=== PATIENT | female | born 1970 | race Caucasian/White ===

== ENCOUNTER 2017-06-15 21:32 | Emergency (ER) | payer BC ==
[2017-06-15 21:41] VITALS: BP 148/98
[2017-06-15] MEDS ORDERED: Albuterol 2.5 MG/3 ML NEB.SOL* (0.083%) INH ONE (21:55)
[2017-06-15] MEDS ORDERED: predniSONE TAB* 20 MG PO ONE (21:57)
--- NOTE | 2017-06-15 22:06 | UC ---
Respiratory Complaint HPI - HPI Summary HPI Summary: This is a 47 yo female with asthma who presents with c/o cough and SOB that started this am. Cough is dry. She has used her albuterol neb and inhaler at home earlier today with some positive effect. No fever, abd pain, n/v/d. No rash. She generally has an asthma exacerbation ~once yearly. - History of Current Complaint Chief Complaint: UCRespiratory Stated Complaint: COUGH Hx Last Menstrual Period: 06/02/17 - Allergies/Home Medications Allergies/Adverse Reactions: Allergies Allergy/AdvReac Type Severity Reaction Status Date / Time No Known Allergies Allergy Verified 06/15/17 21:35 PMH/Surg Hx/FS Hx/Imm Hx Previously Healthy: No - asthma - Surgical History Surgical History: Yes Surgery Procedure, Year, and Place: [place], [place] [facility] - Family History Known Family History: Positive: Hypertension - mother, Diabetes - mother - Social History Alcohol Use: Occasionally Substance Use Type: None Smoking Status (MU): Never Smoked Tobacco - Immunization History Most Recent Tetanus Shot: "I have no idea." Review of Systems Constitutional: Negative Skin: Negative Eyes: Negative ENT: Negative Respiratory: Shortness Of Breath, Cough Cardiovascular: Negative Gastrointestinal: Negative Genitourinary: Negative Motor: Negative Neurovascular: Negative Musculoskeletal: Negative Neurological: Negative Psychological: Negative All Other Systems Reviewed And Are Negative: Yes Physical Exam Triage Information Reviewed: Yes Appearance: Well-Appearing Vital Signs: Initial Vital Signs Temp 99.4 F 06/15/17 21:36 Pulse 83 06/15/17 21:36 Resp 20 06/15/17 21:36 BP 148/98 06/15/17 21:36 Pulse Ox 99 06/15/17 21:36 Vital Signs Reviewed: Yes ENT Exam: Normal ENT: Positive: Hearing grossly normal Neck: Positive: Supple, Nontender Respiratory: Positive: Lungs clear, Other: - freq dry cough. Negative: Crackles , Stridor, Wheezing Cardiovascular: Positive: RRR, No Murmur Abdomen Description: Positive: Nontender, Soft Musculoskeletal Exam: Normal Musculoskeletal: Positive: Strength Intact Neurological Exam: Normal Neurological: Positive: Alert Psychological Exam: Normal Skin Exam: Normal Skin: Negative: rashes UC Diagnostic Evaluation - Laboratory O2 Sat by Pulse Oximetry: 99 Re-Evaluation - Re-Evaluation First Eval Re-Evaluation Time: 22:15 Change: Improved Comment: Cough improved, good air exchange Respiratory Course/Dx - Course Course Of Treatment: This is a 47 yo female with asthma who presents with c/o cough and SOB x 1 d. Exam is mostly benign but she has a freq dry cough. Will treat for asthma exacerbation/acute bronchitis. - Differential Dx/Diagnosis Differential Diagnosis/HQI/PQRI: Asthma, CHF, Exacerbation Of COPD Provider Diagnoses: 1. Asthma exacerbation. 2. Acute bronchitis Discharge - Discharge Plan Condition: Stable Disposition: HOME Prescriptions: Albuterol 2.5MG/3ML (0.083%)* [Ventolin 2.5 MG/3 ML NEB.JOSEMANUEL*] 2.5 mg INH Q6H PRN #1 box PRN Reason: Sob/Wheezing Azithromyxin REYNALDO (NF) [Z-Reynaldo (Zithromax) 250 mg tabs #6] 2 tab PO .TODAY, THEN 1 DAILY #6 tab predniSONE TAB* [Deltasone TAB*] 40 mg PO SEE INSTRUCTIONS #12 tab Patient Education Materials: Bronchospasm (ED), Acute Bronchitis (ED) Referrals: Amparo Dela Cruz MD [Medical Doctor] - If Needed Additional Instructions: Instructions: 1. Use nebulizer 3-4 times daily 2. Take antibiotic and steroid as directed
== END 2017-06-15 22:19 | disposition home or self-care (01) ==
LOC: UCCORT 21:32
DX: J45.901 Unspecified asthma with (acute) exacerbation (principal); J20.9 Acute bronchitis, unspecified
CPT/HCPCS: 99212; G0463; J7512

== ENCOUNTER 2019-04-10 13:34 | Emergency (ER) | payer BC ==
[2019-04-10 14:53] VITALS: BP 131/87
[2019-04-10] MEDS ORDERED: predniSONE TAB* 20 MG PO ONE (15:15)
--- NOTE | 2019-04-10 15:18 | UC ---
Skin Complaint HPI - HPI Summary HPI Summary: 48 yo female with bite or sting that occurred in [place] at an outdoor venture 2-3 days ago pruritic swollen red warm oozing serous fluid not painful no fever tetanus up to date - History of Current Complaint Chief Complaint: UCSkin Time Seen by Provider: 04/10/19 15:04 Stated Complaint: SKIN CONCERN Hx Obtained From: Patient Hx Last Menstrual Period: 03/29/19 Onset/Duration: Gradual Onset Skin Exposure Onset/Duration: Days Ago Timing: Constant Onset Severity: Mild Current Severity: Moderate Pain Intensity: 0 Location: Discrete Character: Swelling, Pruritus, Pain - mild, Redness, Raised Aggravating Factor(s): Touch Alleviating Factor(s): Nothing Associated Signs & Symptoms: Positive: Drainage - serous, Tenderness Related History: Insect Bite/Sting - Allergy/Home Medications Allergies/Adverse Reactions: Allergies Allergy/AdvReac Type Severity Reaction Status Date / Time No Known Allergies Allergy Verified 04/10/19 14:47 Home Medications: Home Medications ValACYclovir (*) [Valtrex 500 mg (*)] 500 mg PO DAILY PRN 04/10/19 [History Confirmed 04/10/19] PMH/Surg Hx/FS Hx/Imm Hx Previously Healthy: Yes Cardiovascular History: Hypertension, Other Other Cardiovascular History: SVT - Surgical History Surgical History: Yes Surgery Procedure, Year, and Place: [place]oscopies, 2015, [place], [place] - Family History Known Family History: Positive: Hypertension - mother, Diabetes - mother - Social History Alcohol Use: Occasionally Substance Use Type: None Smoking Status (MU): Never Smoked Tobacco - Immunization History Most Recent Tetanus Shot: "I have no idea." Review of Systems All Other Systems Reviewed And Are Negative: Yes Constitutional: Positive: Negative Skin: Positive: Negative Eyes: Positive: Negative ENT: Positive: Negative Respiratory: Positive: Negative Cardiovascular: Positive: Negative Gastrointestinal: Positive: Negative Genitourinary: Positive: Negative Motor: Positive: Negative Neurovascular: Positive: Negative Musculoskeletal: Positive: Negative Neurological: Positive: Negative Psychological: Positive: Negative Physical Exam Triage Information Reviewed: Yes Appearance: Well-Appearing, No Pain Distress, Well-Nourished Vital Signs: Initial Vital Signs Temp 99.2 F 04/10/19 14:49 Pulse 84 04/10/19 14:49 Resp 16 04/10/19 14:49 BP 131/87 04/10/19 14:49 Pulse Ox 100 04/10/19 14:49 Vital Signs Reviewed: Yes Eyes: Positive: Conjunctiva Clear ENT: Positive: Hearing grossly normal. Negative: Nasal congestion, Nasal drainage, Trismus, Muffled voice, Hoarse voice Neck: Positive: Supple, Nontender Respiratory: Positive: Lungs clear, Normal breath sounds, No respiratory distress, No accessory muscle use Cardiovascular: Positive: RRR, No Murmur Musculoskeletal: Positive: ROM Intact, No Edema Neurological: Positive: Alert Psychological Exam: Normal Skin Exam: Other - see image Images Front/Back of Body, Lg ([place]): 1 - tender/red and indurated /with central 1 cm area draining serous fluid Course/Dx - Diagnoses Provider Diagnosis: Insect bite (nonvenomous), right thigh, initial encounter Discharge - Sign-Out/Discharge Documenting (check all that apply): Patient Departure All imaging exams completed and their final reports reviewed: No Studies - Discharge Plan Condition: Stable Disposition: HOME Prescriptions: Cephalexin CAP* [Keflex CAP*] 500 mg PO QID #28 cap predniSONE [Deltasone 20 MG TAB] 40 mg PO DAILY #8 tab Patient Education Materials: Insect Bite or Sting (ED) Referrals: Sim Ly DO [Primary Care Provider] - If Needed Additional Instructions: this may all be due to a local reaction to venom from and insect bite or sting we will cover you with antibiotics incase this bite has caused an infection ( cellulitis) a culture is pending - Billing Disposition and Condition Condition: STABLE Disposition: Home
== END 2019-04-10 15:30 | disposition home or self-care (01) ==
LOC: UCCORT 13:34
DX: W57.XXXA Bitten or stung by nonvenomous insect and other nonvenomous arthropods, initial encounter (principal); S70.361A Insect bite (nonvenomous), right thigh, initial encounter; Y92.9 Unspecified place or not applicable; I10 Essential (primary) hypertension
CPT/HCPCS: 87070; 87205; 99212; G0463; J7512

== ENCOUNTER 2019-11-15 05:48 | Day surgery (SDC) | payer BC ==
[2019-11-15] MEDS ORDERED: Propofol* 10 MG/ML 20 ML BTL ONE (07:33)
[2019-11-15] MEDS ORDERED: Midazolam* 1 MG/ML 2 ML VIAL (2 MG) ONE (07:39)
[2019-11-15] MEDS ORDERED: HYDROmorphone INJ1* 1 MG/ML SYRINGE IV PRN (07:42)
[2019-11-15] MEDS ORDERED: Ondansetron INJ* 2 MG/ML VIAL IV PRN (07:42)
[2019-11-15] MEDS ORDERED: Naloxone* 0.4 MG/ML 1 ML VIAL IV PRN (07:42)
[2019-11-15 09:23] VITALS: BP 125/84
--- NOTE | 2019-11-15 15:50 | PRO ---
CC: Dr. Sim Ly * DATE OF PROCEDURE: 11/15/2019. - [facility] PROCEDURE: EGD with biopsy. REFERRING PHYSICIAN: Dr. Sim Ly. INDICATION: Chronic GERD. Complaining of ongoing symptoms despite Nexium 40 twice a day, including globus sensation and intermittent mild dysphagia. She had an EGD in 2016 which in [place] and was told to come back in three years for a repeat exam due to something precancerous. MEDICATIONS GIVEN: By Anesthesia. DESCRIPTION OF PROCEDURE: Full disclosure of risks were reviewed with the patient as detailed on the consent form. The patient was placed in the left lateral decubitus position and monitored with continuous pulse oximetry, capnography, interval blood pressure monitoring, and direct observation. A bite block was placed between the patient's teeth. An adult gastroscope was then inserted into the patient's mouth and advanced down the esophagus, into the stomach and into the distal duodenum. Findings and interventions are described below. FINDINGS: Esophagus was a tubular structure without rings or strictures. No furrowing. GE junction occurred at 37 cm and was mildly irregular with proximal extension of a few areas of the junction 0.5. Biopsies were obtained from the GE junction in four quadrants. The scope was then advanced into a 3 cm hiatal hernia and then into the gastric body. The stomach was examined in the forward and retroflexed views. There were a few tiny gastric polyps which were very benign appearing. No other findings in the stomach. The scope was then advanced into the duodenum to at least the third portion. The duodenal mucosa was normal in appearance. The scope was then withdrawn back into the esophagus where biopsies were obtained from the mid and distal esophagus given some intermittent dysphagia complaints. The scope was then withdrawn from the patient. The patient tolerated the procedure well and was recovered in the GI recovery area. IMPRESSION: 1. Complete upper endoscopy to the distal duodenum. 2. Mildly irregular GE junction. Appearance not particularly concerning for Varner's esophagus. 3. A few tiny gastric polyps, likely fundic gland related to chronic PPI use. FOLLOW-UP: 1. Await pathology. 2. Continue Nexium 40 mg twice daily, may consider switch to a different PPI. Could consider Dexilant 60 mg daily, although insurance coverage is inconsistent. 3. Follow-up in clinic. Thank you very much for this referral. [id number]/[facility] #: [id number] ANDRE
== END 2019-11-15 10:57 | disposition home or self-care (01) ==
LOC: OR 05:48
PROVIDERS: ATTEND Internal Medicine Gastroenterology
DX: K21.0 Gastro-esophageal reflux disease with esophagitis (principal); R13.10 Dysphagia, unspecified; I10 Essential (primary) hypertension; J45.909 Unspecified asthma, uncomplicated
CPT/HCPCS: 81025; 88305; J2250; J2704